=== PATIENT | male | born 1945 | race Caucasian/White ===

== ENCOUNTER 2016-05-13 11:25 | Inpatient (IN) | payer MEDICARE, MEDICAID ==
[~2016-05-13] VITALS: Ht 165.1 cm; Wt 62.6 kg
[2016-05-13 11:57] LABS: ANION GAP 12 (5-14); CARBON DIOXIDE 29 mmol/L (21-32); CHLORIDE 107 mmol/L (98-107); CREATININE 1.2 mg/dL (0.6-1.3); GLUCOSE 109 mg/dL (74-106); POTASSIUM 4.4 mmol/L (3.5-5.1); SODIUM SERUM 143 mmol/L (136-145); UREA NITROGEN, BLOOD 28 mg/dL (7-18)
[2016-05-13 12:02] LABS: ALANINE AMINOTRANSFERASE 7 U/L (12-78); ALBUMIN 3.8 g/dL (3.4-5.0); ASPARTATE AMINOTRANSFERASE 14 U/L (15-37); BILIRUBIN,DIRECT 0.1 mg/dL (0.0-0.2); BILIRUBIN,TOTAL 0.4 mg/dL (0.2-1.0); INDIRECT BILIRUBIN 0.3 mg/dL (0.0-1.1); TOTAL PROTEIN, SERUM 7.4 g/dL (6.4-8.2)
[2016-05-13 12:03] LABS: ACETAMINOPHEN 0 ug/ml (10-30); BASOPHILS # (AUTO) 0.1 /CMM (0.0-0.2); BASOPHILS % (AUTO) 0.7 % (0.0-2.0); DIFF TOTAL % 100 %; EOSINOPHILS # (AUTO) 0.1 /CMM (0.0-0.7); EOSINOPHILS % (AUTO) 1.3 % (0.0-6.0); HEMATOCRIT 34 % (39-51); LYMPHOCYTES # (AUTO) 1.1 /CMM (0.8-4.8); MEAN CORPUSCULAR HEMOGLOBIN 28 PG (26.0-33.0); MEAN CORPUSCULAR HGB CONC 32 g/dl (31.0-36.0); MEAN CORPUSCULAR VOLUME 87 fL (80-96); MONOCYTES # (AUTO) 0.6 /CMM (0.1-1.30); MONOCYTES % (AUTO) 7.5 % (2.0-12.0); NEUTROPHILS # (AUTO) 6.4 /CMM (1.8-8.9); NEUTROPHILS % (AUTO) 77.5 % (43.0-81.0); PLATELET COUNT (AUTO) 185 /CMM (150-450); RED BLOOD CELL COUNT(AUTO) 3.92 MIL/uL (4.5-6.0); SALICYLATE 1.1 mg/dL (2.8-20.0); WHITE BLOOD COUNT (AUTO) 8.3 K/uL (4.3-11.0)
[2016-05-13 12:20] LABS: ADD UA MICROSCOPIC NO; KETONES,URINE Negative (NEGATIVE); LEUKOCYTE ESTERASE ,URINE Negative (NEGATIVE); PH,URINE 6.5 (5.0-8.0)
[2016-05-13 12:36] LABS: CANNABINOID, URINE NEGATIVE (NEGATIVE); PHENCYCLIDINE SCREEN,URINE NEGATIVE (NEGATIVE)
[2016-05-13] MEDS ORDERED: CYAN10009 PO (12:41)
[2016-05-13] MEDS ORDERED: DOCU-25 PO (12:41)
[2016-05-13] MEDS ORDERED: CARB-93 PO (12:41)
[2016-05-13] MEDS ORDERED: ASPI81TA2 PO (12:41)
[2016-05-13] MEDS ORDERED: ACET-868 PO (12:41)
[2016-05-13] MEDS ORDERED: FOLI1TAB16 PO (12:41)
[2016-05-13] MEDS ORDERED: DIVA125C PO ×2 (12:41)
[2016-05-13] MEDS ORDERED: ATOR40TA PO (12:41)
[2016-05-13] MEDS ORDERED: LISI-607 PO (12:41)
[2016-05-13] MEDS ORDERED: OLAN7.5T3 PO (12:41)
[2016-05-13] MEDS ORDERED: FAMO-131 PO (12:41)
[2016-05-13 13:40] VITALS: BP 149/81
[2016-05-13] MEDS ORDERED: MAGNESIUM HYDROXIDE 30 ML UDC PO PRN (14:00)
[2016-05-13] MEDS ORDERED: ACETAMINOPHEN 325 MG TABLET PO PRN ×2 (14:00→14:30)
[2016-05-13] MEDS ORDERED: MAG HYDROX/AL HYDROX/SIMETH 30 ML UDC PO PRN (14:00)
[2016-05-13] MEDS: FAMOTIDINE (20 MG) 20 MG TABLET PO SCH (16:15)
[2016-05-13] MEDS: CARBIDOPA/LEVODOPA 25/100 MG 1 UDTAB PO SCH (16:15)
[2016-05-13 16:21] VITALS: BP 115/56
[2016-05-13 20:02] VITALS: BP 159/88
[2016-05-13] MEDS: DOCUSATE SODIUM 100 MG CAPSULE PO SCH (21:24)
[2016-05-13] MEDS: ATORVASTATIN 40 MG TABLET PO SCH (21:24)
[2016-05-13] MEDS: TEMAZEPAM 7.5 MG CAPSULE PO PRN (21:25)
[2016-05-13] MEDS: DIVALPROEX SODIUM 250 MG TABLET.DR PO SCH (21:25)
[2016-05-13] MEDS: OLANZAPINE 5 MG/TAB.RAPDIS PO SCH (21:27)
[2016-05-14 07:53] LABS: ALBUMIN 3.1 g/dL (3.4-5.0); BILIRUBIN,TOTAL 0.5 mg/dL (0.2-1.0); CALCIUM, SERUM 8.9 mg/dL (8.5-10.1); CREATININE 1.2 mg/dL (0.6-1.3); POTASSIUM 4.4 mmol/L (3.5-5.1); TOTAL PROTEIN, SERUM 6.2 g/dL (6.4-8.2)
[2016-05-14] MEDS: ASPIRIN 81 MG TAB.CHEW PO SCH (09:00)
[2016-05-14] MEDS: CARBIDOPA/LEVODOPA 25/100 MG 1 UDTAB PO SCH ×3 (09:00→17:59)
[2016-05-14] MEDS: DOCUSATE SODIUM 100 MG CAPSULE PO SCH ×2 (09:00→21:26)
[2016-05-14] MEDS: FOLIC ACID 1 MG TABLET PO SCH (09:01)
[2016-05-14] MEDS: LISINOPRIL (5MG) 5 MG TABLET PO SCH (09:01)
[2016-05-14] MEDS: FAMOTIDINE (20 MG) 20 MG TABLET PO SCH ×2 (09:01→18:01)
[2016-05-14] MEDS: CYANOCOBALAMIN 500 MCG TABLET PO SCH (09:02)
[2016-05-14] MEDS: OLANZAPINE 5 MG/TAB.RAPDIS PO SCH ×4 (09:11→21:41)
[2016-05-14] MEDS: DIVALPROEX SODIUM 250 MG TABLET.DR PO SCH ×4 (09:12→21:40)
[2016-05-14] MEDS ORDERED: Z GUARD REMEDY 2 OZ OINT TP PRN (15:00)
[2016-05-14] MEDS: Z GUARD REMEDY 2 OZ OINT TP SCH (15:22)
[2016-05-14 16:00] VITALS: BP 113/57
[2016-05-14] MEDS: GABAPENTIN 100 MG CAPSULE PO SCH (17:00)
[2016-05-14] MEDS: LORAZEPAM 0.5 MG TABLET PO PRN (19:29)
[2016-05-14] MEDS: TEMAZEPAM 7.5 MG CAPSULE PO PRN (21:27)
[2016-05-14] MEDS: ATORVASTATIN 40 MG TABLET PO SCH (21:27)
[2016-05-15 08:00] VITALS: BP 136/86
[2016-05-15] MEDS: FAMOTIDINE (20 MG) 20 MG TABLET PO SCH ×2 (08:45→16:38)
[2016-05-15] MEDS: ASPIRIN 81 MG TAB.CHEW PO SCH ×2 (08:45→08:50)
[2016-05-15] MEDS: LISINOPRIL (5MG) 5 MG TABLET PO SCH (08:45)
[2016-05-15] MEDS: CYANOCOBALAMIN 500 MCG TABLET PO SCH (08:45)
[2016-05-15] MEDS: DOCUSATE SODIUM 100 MG CAPSULE PO SCH ×2 (08:45→22:56)
[2016-05-15] MEDS: FOLIC ACID 1 MG TABLET PO SCH (08:45)
[2016-05-15] MEDS: CARBIDOPA/LEVODOPA 25/100 MG 1 UDTAB PO SCH ×3 (08:45→16:38)
[2016-05-15] MEDS: GABAPENTIN 100 MG CAPSULE PO SCH ×4 (08:45→16:38)
[2016-05-15] MEDS: DIVALPROEX SODIUM 250 MG TABLET.DR PO SCH ×4 (08:48→22:58)
[2016-05-15] MEDS: OLANZAPINE 5 MG/TAB.RAPDIS PO SCH ×4 (09:06→22:58)
[2016-05-15] MEDS: Z GUARD REMEDY 2 OZ OINT TP SCH (09:07)
[2016-05-15 16:00] VITALS: BP 126/67
[2016-05-15 20:00] VITALS: BP 103/52
[2016-05-15] MEDS: ATORVASTATIN 40 MG TABLET PO SCH (22:56)
[2016-05-15] MEDS: TEMAZEPAM 7.5 MG CAPSULE PO PRN (22:59)
[2016-05-16 08:00] VITALS: BP 114/70
[2016-05-16] MEDS: FAMOTIDINE (20 MG) 20 MG TABLET PO SCH ×2 (08:45→17:24)
[2016-05-16] MEDS: GABAPENTIN 100 MG CAPSULE PO SCH ×3 (08:46→17:24)
[2016-05-16] MEDS: ASPIRIN 81 MG TAB.CHEW PO SCH (08:46)
[2016-05-16] MEDS: CYANOCOBALAMIN 500 MCG TABLET PO SCH (08:46)
[2016-05-16] MEDS: DOCUSATE SODIUM 100 MG CAPSULE PO SCH ×2 (08:46→21:24)
[2016-05-16] MEDS: FOLIC ACID 1 MG TABLET PO SCH (08:46)
[2016-05-16] MEDS: LISINOPRIL (5MG) 5 MG TABLET PO SCH (08:46)
[2016-05-16] MEDS: CARBIDOPA/LEVODOPA 25/100 MG 1 UDTAB PO SCH ×3 (08:46→17:24)
[2016-05-16] MEDS: Z GUARD REMEDY 2 OZ OINT TP SCH (08:47)
[2016-05-16] MEDS: OLANZAPINE 5 MG/TAB.RAPDIS PO SCH ×4 (08:49→21:25)
[2016-05-16] MEDS: DIVALPROEX SODIUM 250 MG TABLET.DR PO SCH ×4 (08:49→21:24)
[2016-05-16 16:00] VITALS: BP 113/56
[2016-05-16 20:00] VITALS: BP 108/50
[2016-05-16] MEDS: TEMAZEPAM 7.5 MG CAPSULE PO PRN (22:10)
[2016-05-16] MEDS: ATORVASTATIN 40 MG TABLET PO SCH (22:10)
[2016-05-17] VITALS (7 sets, daily range): BP systolic 68–131; BP diastolic 39–81
[2016-05-17] MEDS: GABAPENTIN 100 MG CAPSULE PO SCH ×4 (08:21→17:00)
[2016-05-17] MEDS: DOCUSATE SODIUM 100 MG CAPSULE PO SCH ×2 (08:21→21:15)
[2016-05-17] MEDS: FOLIC ACID 1 MG TABLET PO SCH (08:21)
[2016-05-17] MEDS: FAMOTIDINE (20 MG) 20 MG TABLET PO SCH ×2 (08:21→17:00)
[2016-05-17] MEDS: CYANOCOBALAMIN 500 MCG TABLET PO SCH (08:22)
[2016-05-17] MEDS: CARBIDOPA/LEVODOPA 25/100 MG 1 UDTAB PO SCH ×5 (08:22→17:54)
[2016-05-17] MEDS: LISINOPRIL (5MG) 5 MG TABLET PO SCH (08:22)
[2016-05-17] MEDS: ASPIRIN 81 MG TAB.CHEW PO SCH (08:22)
[2016-05-17] MEDS: DIVALPROEX SODIUM 250 MG TABLET.DR PO SCH ×5 (08:27→21:15)
[2016-05-17] MEDS: OLANZAPINE 5 MG/TAB.RAPDIS PO SCH ×5 (08:32→21:15)
[2016-05-17] MEDS: LORAZEPAM 0.5 MG TABLET PO PRN (11:22)
[2016-05-17] MEDS: Z GUARD REMEDY 2 OZ OINT TP SCH (13:41)
[2016-05-17] MEDS: TEMAZEPAM 7.5 MG CAPSULE PO PRN (22:16)
[2016-05-17] MEDS: ATORVASTATIN 40 MG TABLET PO SCH (22:16)
[2016-05-18 08:40] VITALS: BP 125/80
[2016-05-18] MEDS: FAMOTIDINE (20 MG) 20 MG TABLET PO SCH ×2 (08:57→17:10)
[2016-05-18] MEDS: ASPIRIN 81 MG TAB.CHEW PO SCH (08:57)
[2016-05-18] MEDS: CARBIDOPA/LEVODOPA 25/100 MG 1 UDTAB PO SCH ×3 (08:57→17:10)
[2016-05-18] MEDS: FOLIC ACID 1 MG TABLET PO SCH (08:57)
[2016-05-18] MEDS: Z GUARD REMEDY 2 OZ OINT TP SCH (08:58)
[2016-05-18] MEDS: DOCUSATE SODIUM 100 MG CAPSULE PO SCH ×2 (08:58→21:17)
[2016-05-18] MEDS: LISINOPRIL (5MG) 5 MG TABLET PO SCH (08:58)
[2016-05-18] MEDS: GABAPENTIN 100 MG CAPSULE PO SCH ×3 (08:58→17:10)
[2016-05-18] MEDS: CYANOCOBALAMIN 500 MCG TABLET PO SCH (08:58)
[2016-05-18] MEDS: OLANZAPINE 5 MG/TAB.RAPDIS PO SCH ×4 (09:00→21:17)
[2016-05-18] MEDS: DIVALPROEX SODIUM 250 MG TABLET.DR PO SCH ×4 (09:00→21:17)
[2016-05-18 09:10] LABS: CALCIUM, SERUM 8.7 mg/dL (8.5-10.1); CREATININE 1.4 mg/dL (0.6-1.3); POTASSIUM 4.1 mmol/L (3.5-5.1)
[2016-05-18 16:42] VITALS: BP 124/64
[2016-05-18 19:33] VITALS: BP 135/70
[2016-05-18] MEDS: ATORVASTATIN 40 MG TABLET PO SCH (21:17)
[2016-05-18] MEDS: TEMAZEPAM 7.5 MG CAPSULE PO PRN (21:18)
[2016-05-19 08:00] VITALS: BP 124/64
[2016-05-19] MEDS: FOLIC ACID 1 MG TABLET PO SCH (08:29)
[2016-05-19] MEDS: CYANOCOBALAMIN 500 MCG TABLET PO SCH (08:29)
[2016-05-19] MEDS: DOCUSATE SODIUM 100 MG CAPSULE PO SCH (08:29)
[2016-05-19 08:30] VITALS: BP 126/64
[2016-05-19] MEDS: FAMOTIDINE (20 MG) 20 MG TABLET PO SCH (08:30)
[2016-05-19] MEDS: GABAPENTIN 100 MG CAPSULE PO SCH ×2 (08:30→12:38)
[2016-05-19] MEDS: ASPIRIN 81 MG TAB.CHEW PO SCH (08:30)
[2016-05-19] MEDS: CARBIDOPA/LEVODOPA 25/100 MG 1 UDTAB PO SCH ×2 (08:30→12:38)
[2016-05-19] MEDS: LISINOPRIL (5MG) 5 MG TABLET PO SCH (08:30)
[2016-05-19] MEDS: OLANZAPINE 5 MG/TAB.RAPDIS PO SCH ×2 (09:00→12:38)
[2016-05-19] MEDS: DIVALPROEX SODIUM 250 MG TABLET.DR PO SCH ×2 (09:00→12:38)
[2016-05-19] MEDS: Z GUARD REMEDY 2 OZ OINT TP SCH (10:14)
== END 2016-05-19 13:06 | DRG 885 ==
LOC: ER 11:28 → GPS 13:03
PROVIDERS: ADMIT Psychiatry & Neurology Psychiatry; ATTEND Family Medicine
DX: F31.9 Bipolar disorder, unspecified (principal); F03.91 Unspecified dementia, unspecified severity, with behavioral disturbance; E44.1 Mild protein-calorie malnutrition; E78.5 Hyperlipidemia, unspecified; G20 Parkinson's disease; I10 Essential (primary) hypertension; Z59.0 Homelessness
CPT/HCPCS: 36415; 80048-TC; 80053-TC; 80061-TC; 80076-TC; 80164-TC; 80305; 81000-TC; 82962-TC; 85025-TC; 97001-TC; 97116-TC; 97530-TC; A4606; G0480; G6039-TC; Z7610

== ENCOUNTER 2016-05-22 16:27 | Emergency (ER) | payer MEDICARE, MEDICAID ==
[~2016-05-22] VITALS: Ht 172.7 cm; Wt 65.8 kg
[~2016-05-22 16:27] MED LIST: ACET-868 PO; ASPI81TA2 PO; ATOR40TA PO; CARB-93 PO; CYAN10009 PO; DIVA125C PO; DOCU-25 PO; FAMO-131 PO; FOLI1TAB16 PO; LISI-607 PO; OLAN7.5T3 PO
[2016-05-22 17:43] LABS: BASOPHILS # (AUTO) 0.1 /CMM (0.0-0.2); BASOPHILS % (AUTO) 0.8 % (0.0-2.0); DIFF TOTAL % 100 %; EOSINOPHILS # (AUTO) 0.3 /CMM (0.0-0.7); EOSINOPHILS % (AUTO) 2.5 % (0.0-6.0); HEMATOCRIT 33 % (39-51); HEMOGLOBIN 11.1 g/dL (13.5-17.5); LYMPHOCYTES # (AUTO) 1.7 /CMM (0.8-4.8); LYMPHOCYTES % (AUTO) 15.8 % (20.0-44.0); MEAN CORPUSCULAR HEMOGLOBIN 29 PG (26.0-33.0); MEAN CORPUSCULAR HGB CONC 34 g/dl (31.0-36.0); MEAN CORPUSCULAR VOLUME 86 fL (80-96); MONOCYTES # (AUTO) 0.8 /CMM (0.1-1.30); MONOCYTES % (AUTO) 7.2 % (2.0-12.0); NEUTROPHILS # (AUTO) 7.7 /CMM (1.8-8.9); NEUTROPHILS % (AUTO) 73.7 % (43.0-81.0); PLATELET COUNT (AUTO) 226 /CMM (150-450); RED BLOOD CELL COUNT(AUTO) 3.85 MIL/uL (4.5-6.0); WHITE BLOOD COUNT (AUTO) 10.6 K/uL (4.3-11.0)
[2016-05-22 17:48] LABS: CANNABINOID, URINE NEGATIVE (NEGATIVE); PHENCYCLIDINE SCREEN,URINE NEGATIVE (NEGATIVE)
[2016-05-22 17:50] LABS: ANION GAP 12 (5-14); CARBON DIOXIDE 28 mmol/L (21-32); CHLORIDE 107 mmol/L (98-107); CREATININE 1.3 mg/dL (0.6-1.3); GLUCOSE 83 mg/dL (74-106); POTASSIUM 4.5 mmol/L (3.5-5.1); SODIUM SERUM 143 mmol/L (136-145); UREA NITROGEN, BLOOD 24 mg/dL (7-18)
[2016-05-22] MEDS ORDERED: TEMA7.5C12 PO (17:57)
[2016-05-22] MEDS ORDERED: LORA0.5T PO (17:57)
[2016-05-22] MEDS ORDERED: GABA-534 PO (17:58)
[2016-05-22] MEDS ORDERED: LORAZEPAM 1 MG TABLET ONE (20:15)
[2016-05-22] MEDS ORDERED: LORAZEPAM 1 MG TABLET PO ONE (20:30)
[2016-05-22 21:53] VITALS: BP 114/55
== END 2016-05-22 21:54 | disposition home or self-care (01) ==
LOC: ER 16:35
DX: R45.1 Restlessness and agitation (principal); I10 Essential (primary) hypertension; G20 Parkinson's disease; E78.5 Hyperlipidemia, unspecified; K21.9 Gastro-esophageal reflux disease without esophagitis; F31.9 Bipolar disorder, unspecified; Z79.82 Long term (current) use of aspirin
CPT/HCPCS: 36415; 80048; 80305; 85025; 99284; A4606; G0480; Z7610

== ENCOUNTER 2016-09-02 09:30 | Emergency (ER) | payer MEDICARE, MEDICAID ==
[~2016-09-02] VITALS: Ht 172.7 cm; Wt 68.0 kg
[~2016-09-02 09:30] MED LIST changes: -ACET-868 PO; +GABA-534 PO; +LORA0.5T PO; +TEMA7.5C12 PO
--- NOTE | 2016-09-02 11:15 | NUR ---
REPORT RECEIVED FROM BETHANY CORTES FOR JOSE LUIS. ASSUMED CARE OF PT AT THIS TIME. NAD NOTED. PT RESTING QUIETLY IN BED WITH AT BEDSIDE.
--- NOTE | 2016-09-02 11:50 | NUR ---
PT TRANSPORTED TO CT IN STABLE CONDITION
--- NOTE | 2016-09-02 11:55 | NUR ---
PROVIDED WITH URINAL
--- NOTE | 2016-09-02 12:56 | NUR ---
Patient discharged to home in stable condition. Written and verbal after care instructions given. Patient verbalizes understanding of instruction. PROVIDED WITH WHEELCHAIR ASSISTANCE TO CAR.
[2016-09-02 12:57] VITALS: BP 144/82
== END 2016-09-02 12:57 ==
LOC: ER 09:33
DX: S72.092A Other fracture of head and neck of left femur, initial encounter for closed fracture (principal); E78.5 Hyperlipidemia, unspecified; K21.9 Gastro-esophageal reflux disease without esophagitis; X58.XXXA Exposure to other specified factors, initial encounter; Y93.89 Activity, other specified; Y92.89 Other specified places as the place of occurrence of the external cause; Y99.8 Other external cause status
CPT/HCPCS: 72170-TC; 73700-TC; A4606; Z7610

== ENCOUNTER 2016-09-30 17:49 | Inpatient (IN) | payer MEDICARE, MEDICAID ==
[~2016-09-30] VITALS: Ht 175.3 cm; Wt 66.2 kg
--- NOTE | 2016-09-30 18:00 | NUR ---
PATIENT BIB RA D/T ALTERED MENTAL STATUS, MORE THAN USUAL. PATIENT IS A/OX 1. BREATHING EVEN AND UNLABORED ON ROOM AIR. NO SOB. NO DISTRESS. PATIENT'S VITALS REMAINS STABLE. SAFETY AND COMFORT MEASURES IN PLACE. AWAITING MD ORDERS.
[2016-09-30 18:22] LABS: BASOPHILS # (AUTO) 0.1 /CMM (0.0-0.2); BASOPHILS % (AUTO) 0.5 % (0.0-2.0); EOSINOPHILS % (AUTO) 0.3 % (0.0-6.0); HEMATOCRIT 39 % (39-51); HEMOGLOBIN 12.4 g/dL (13.5-17.5); LYMPHOCYTES # (AUTO) 0.9 /CMM (0.8-4.8); LYMPHOCYTES % (AUTO) 7.1 % (20.0-44.0); MEAN CORPUSCULAR HEMOGLOBIN 27 PG (26.0-33.0); MEAN CORPUSCULAR HGB CONC 32 g/dl (31.0-36.0); MEAN CORPUSCULAR VOLUME 84 fL (80-96); MONOCYTES # (AUTO) 0.8 /CMM (0.1-1.30); MONOCYTES % (AUTO) 6.5 % (2.0-12.0); NEUTROPHILS # (AUTO) 10.3 /CMM (1.8-8.9); NEUTROPHILS % (AUTO) 85.6 % (43.0-81.0); PLATELET COUNT (AUTO) 212 /CMM (150-450); RDW COEFFICIENT OF VARIATION 15.6 (11.5-15.0); RED BLOOD CELL COUNT(AUTO) 4.63 MIL/uL (4.5-6.0); WHITE BLOOD COUNT (AUTO) 12.1 K/uL (4.3-11.0)
[2016-09-30 18:32] LABS: CALCIUM, SERUM 9.5 mg/dL (8.5-10.1); CARBON DIOXIDE 23 mmol/L (21-32); CHLORIDE 107 mmol/L (98-107); CREATININE 2.7 mg/dL (0.6-1.3); GLUCOSE 110 mg/dL (74-106); POTASSIUM 4.9 mmol/L (3.5-5.1); SODIUM SERUM 141 mmol/L (136-145); UREA NITROGEN, BLOOD 54 mg/dL (7-18)
[2016-09-30 18:35] LABS: INR 1.12 (0.87-1.13); PROTHROMBIN TIME 11.7 SECS (9.5-12.7)
[2016-09-30 18:38] LABS: ALANINE AMINOTRANSFERASE 39 U/L (12-78); ALBUMIN 2.9 g/dL (3.4-5.0); ALKALINE PHOSPHATASE 53 U/L (46-116); ASPARTATE AMINOTRANSFERASE 79 U/L (15-37); BILIRUBIN,DIRECT 0.1 mg/dL (0.0-0.2); BILIRUBIN,TOTAL 0.5 mg/dL (0.2-1.0); TOTAL PROTEIN, SERUM 6.9 g/dL (6.4-8.2)
[2016-09-30 18:40] LABS: TROPONIN I 0.162 ng/mL (0.00-0.056)
[2016-09-30] MEDS ORDERED: DOCU-170 PO (18:53)
[2016-09-30] MEDS ORDERED: ACET-868 PO (18:53)
[2016-09-30] MEDS ORDERED: CHOL200026 PO (18:53)
[2016-09-30] MEDS ORDERED: MEMA5TAB PO (18:53)
[2016-09-30] MEDS ORDERED: QUET100T PO (18:53)
[2016-09-30] MEDS ORDERED: FOLI1TAB16 PO (18:53)
[2016-09-30] MEDS ORDERED: BISA-79 PO (18:53)
[2016-09-30] MEDS ORDERED: MAG30ORA PO (18:53)
[2016-09-30] MEDS ORDERED: DIVA125C PO (18:53)
[2016-09-30] MEDS ORDERED: TRAZ-144 PO (18:53)
[2016-09-30] MEDS ORDERED: QUET50TA PO (18:53)
[2016-09-30] MEDS ORDERED: MULT-659 PO (18:53)
[2016-09-30] MEDS ORDERED: FAMO20TA8 PO (18:53)
[2016-09-30] MEDS ORDERED: IV NS 0.9% 1,000 ML BAG IV ONE (19:00)
[2016-09-30] MEDS ORDERED: ASPIRIN 81 MG TAB.CHEW PO ONE (19:00)
[2016-09-30] MEDS ORDERED: ASPIRIN 81 MG TAB.CHEW ONE (19:07)
--- NOTE | 2016-09-30 19:14 | NUR ---
PATIENT TAKEN TO CT VIA STRETCHER.
--- NOTE | 2016-09-30 19:25 | NUR ---
PATIENT RETURNED FROM CT. REPORT GIVEN TO SOPHIA ALEXANDRE FOR JOSE LUIS.
[2016-09-30] MEDS ORDERED: IV NS 0.9% 1,000 ML IV PRN (19:32)
--- NOTE | 2016-09-30 19:53 | NUR ---
URINE COLLECTED BY STRAIGHT CATH PER MD ORDER, KEATON SENT TO LAB WILL CONTINUE TO MONITOR.
[2016-09-30 19:55] LABS: APPEARANCE,URINE Clear (CLEAR); BILIRUBIN,URINE SMALL (NEGATIVE); BLOOD, URINE Negative Ery/uL (NEGATIVE); COLOR,URINE Yellow (YELLOW); KETONES,URINE Negative (NEGATIVE); LEUKOCYTE ESTERASE ,URINE Negative (NEGATIVE); NITRITE, URINE Negative (NEGATIVE); PH,URINE 5.5 (5.0-8.0); PROTEIN,URINE Trace mg/dl (NEGATIVE); UGLUCOSE Negative (NEGATIVE); UROBILINOGEN,URINE 0.2 EU/dL (0.2)
[2016-09-30] MEDS: MEMANTINE HCL 5 MG TABLET PO SCH (20:00)
[2016-09-30] MEDS ORDERED: LORAZEPAM 0.5 MG TABLET PO PRN (20:00)
[2016-09-30] MEDS ORDERED: MAG HYDROX/AL HYDROX/SIMETH 30 ML UDC PO PRN (20:00)
[2016-09-30] MEDS ORDERED: BISACODYL (5 MG) 5 MG TABLET.DR PO PRN (20:00)
[2016-09-30] MEDS ORDERED: MAGNESIUM HYDROXIDE 30 ML UDC PO PRN (20:00)
[2016-09-30] MEDS ORDERED: ONDANSETRON HCL/PF 4 MG/2 ML VIAL IVP PRN (20:00)
[2016-09-30] MEDS ORDERED: ACETAMINOPHEN 325 MG TABLET PO PRN (20:00)
[2016-09-30] MEDS ORDERED: Z GUARD REMEDY 2 OZ OINT TP PRN (20:00)
[2016-09-30] MEDS ORDERED: TRAZODONE 50 MG TABLET PO PRN (20:00)
[2016-09-30] MEDS ORDERED: HYDROCODONE/APAP 5/325MG 1 EACH TABLET PO PRN (20:00)
--- NOTE | 2016-09-30 20:05 | NUR ---
REPORT GIVEN TO REKHA/RN ON BEHALF OF PRIMARY NURSE BETTIE.
[2016-09-30 20:08] LABS: BACTERIA,URINE Few /HPF (None Seen); RBC,URINE 0-2 /HPF (0-2); SQUAMOUS EPITHELIAL CELL,UR Rare /HPF (None Seen); WBC,URINE 0-2 /HPF (0-3)
[2016-09-30 20:20] VITALS: BP 138/73
--- NOTE | 2016-09-30 20:20 | NUR ---
RESIDENT MEDICAL OFFICER OPENING NOTES: RECEIVED PT. PT IS A/O X 1 AND IS CONFUSED. PT WAS BROUGHT UP AND IS FINISHING UP WITH 2L OF NS. PT HAS IV ON L FOREARM #20G. PT ALSO HAS ANOTHER IV ON R WRIST #20 G AND IS PATENT AND INTACT. PT HAS DIAPER ON. PT ON 2LPM VIA NC AND IS TOLERATING WELL. CALL LIGHT WITHIN PT'S REACH. AT BEDSIDE. BED KEPT IN LOCKED, LOWEST POSITION, AND SIDE RAILS X 2 UP. WILL CONTINUE TO MONITOR PT.
[2016-09-30] MEDS: DIVALPROEX SODIUM 125 MG CAP.SPRINK PO SCH (20:47)
[2016-09-30] MEDS ORDERED: ENOXAPARIN SODIUM 30 MG/0.3 ML DISP.SYRIN SQ SCH (21:00)
[2016-09-30] MEDS: ATORVASTATIN 40 MG TABLET PO SCH (22:00)
--- NOTE | 2016-09-30 22:00 | NUR ---
NURSE OFFICE NOTES: SPOKE WITH DR. STAFFORD AND PER DR. STAFFORD, HOLD PO MEDS UNTIL SWALLOW EVAL DONE.
[2016-10-01] VITALS (35 sets, daily range): BP systolic 84–156; BP diastolic 43–99
--- NOTE | 2016-10-01 00:15 | NUR ---
REGENERATOR OPERATOR NOTES: DR. JOE ON THE FLOOR AND WAS INFORMED ABOUT PT'S CRITICAL TROPONIN LAB VALUE. EKG STAT WAS ORDERED AND HEPARIN DRIP WELL.
[2016-10-01] MEDS ORDERED: HEPARIN INFUSION/D5W 500 ML IV ONE (00:38)
--- NOTE | 2016-10-01 01:00 | NUR ---
TUBE WRAPPER NOTES: INFORMED DR. JOE ABOUT EKG RESULTS AND SHE SAID TO TRANSFER PT TO ICU.
--- NOTE | 2016-10-01 01:35 | NUR ---
ICU/RN- RECEIVED PT. FROM [facility] PER ACLS PROTOCOL NURSING FOCUS:ALTERED CARDIAC TISSUE PERFUSION R/T DIAGNOSIS OF STEMI. ROUTINE ICU ADMISSION CARE INITIATED. PT. IS AWAKE, ALERT, ORIENTED TO SELF.WILL ARRANGE TO TRANSFER TO [facility] PER CASH POSTER DR. PADILLA PER [place] SOPHIA RAJAN.
[2016-10-01] MEDS ORDERED: HEPARIN SODIUM, PORCINE 5000 UNITS/1 ML VIAL ONE (01:53)
[2016-10-01] MEDS ORDERED: HEPARIN SODIUM, PORCINE 5000 UNITS/1 ML VIAL IV ONE (02:00)
--- NOTE | 2016-10-01 02:00 | NUR ---
RN/ICU- SPOKE TO DUC , HOUSEKEEPING AID AT [facility] REGARDING TRANSFER, FACE SHEET AND COPY OF 12 LEAD EKG FAXED TO SAME.
--- NOTE | 2016-10-01 02:05 | NUR ---
RN/ICU- HEPARIN DRIP STARTED PER [facility] PROTOCOL PER MD ORDER.
[2016-10-01] MEDS: HEPARIN INFUSION/D5W 500 ML IV PRN ×2 (02:06→22:46)
--- NOTE | 2016-10-01 02:15 | NUR ---
RN/ICU- SPOKE TO DUC FROM [facility] BY PHONE, ACCORDING TO SABRA, PT. TRANSFER WAS DECLINED BY DR. MODI, FUR OPERATOR FROM [facility], "PT. IS NOT A STEMI" PER SABRA FUR OPERATOR. WILL NOTIFY
--- NOTE | 2016-10-01 02:20 | NUR ---
RN/ICU-DR. HEATH Fields MADE AWARE OF [facility] DECISION ,W/ NO FURTHER ORDERS.
--- NOTE | 2016-10-01 03:00 | NUR ---
RN/ICU- PT. GEOVANNI NOTIFIED BY PHONE REGARDING [facility] DECLINATION OF PT. TRANSFER. REQUESTING TO TALK TO DR. HEATH Fields
--- NOTE | 2016-10-01 03:15 | NUR ---
RN/ICU- SPOKE TO DR. HEATH Fields AND STATED TO LET FAMILY PT. KNOW THAT MACHINE CAGE MAKER WAS CONSULTED AND WILL SEE PT. IN AM AND WILL HAVE FURTHER INFORMATION.
--- NOTE | 2016-10-01 03:20 | NUR ---
RN/ICU- WAS NOTIFIED OF DR. JOE'S MESSAGE, WILL WAIT FOR SLOT FLOOR SUPERVISOR TO SEE PT. TODAY AND REQUESTING TO BE CALLED BY SLOT FLOOR SUPERVISOR REGARDING PLAN AND PT. DIAGNOSIS. WILL NOTIFY DAYSHIFT RN.
--- NOTE | 2016-10-01 04:56 | NUR ---
RN/ICU- PT. IS FOR SWALLOW EVAL. TODAY PER ENDORSED BY SOPHIA RAJAN. WILL KEEP PT. NPO FOR NOW.
--- NOTE | 2016-10-01 04:57 | NUR ---
RN/ICU- PT. REMAINS AROUSABLE, ASKING FOR WATER, ORAL CARE DONE.
--- NOTE | 2016-10-01 06:15 | NUR ---
RN/ICU-RESULT OF TROPONIN, 15.512, DR. JOE NOTIFIED W/ ORDER TO DO AN EKG AND NOTIFY DR. PADILLA.
[2016-10-01 06:16] LABS: BASOPHILS % (AUTO) 0.3 % (0.0-2.0); EOSINOPHILS # (AUTO) 0.1 /CMM (0.0-0.7); EOSINOPHILS % (AUTO) 0.5 % (0.0-6.0); HEMATOCRIT 33 % (39-51); HEMOGLOBIN 10.6 g/dL (13.5-17.5); LYMPHOCYTES % (AUTO) 9.6 % (20.0-44.0); MEAN CORPUSCULAR HEMOGLOBIN 27 PG (26.0-33.0); MEAN CORPUSCULAR HGB CONC 33 g/dl (31.0-36.0); MEAN CORPUSCULAR VOLUME 84 fL (80-96); MONOCYTES # (AUTO) 0.8 /CMM (0.1-1.30); MONOCYTES % (AUTO) 8.2 % (2.0-12.0); NEUTROPHILS # (AUTO) 8.3 /CMM (1.8-8.9); NEUTROPHILS % (AUTO) 81.4 % (43.0-81.0); PLATELET COUNT (AUTO) 172 /CMM (150-450); RDW COEFFICIENT OF VARIATION 16.6 (11.5-15.0); RED BLOOD CELL COUNT(AUTO) 3.88 MIL/uL (4.5-6.0); WHITE BLOOD COUNT (AUTO) 10.2 K/uL (4.3-11.0)
--- NOTE | 2016-10-01 06:25 | NUR ---
RN/ICU-SPOKE TO DR. PADILLA AND MADE AWARE OF PT LAB RESULT AND SITUATION W/ [facility] W/ NO FURTHER ORDER.
[2016-10-01 06:26] LABS: CALCIUM, SERUM 9.1 mg/dL (8.5-10.1); CARBON DIOXIDE 26 mmol/L (21-32); CHLORIDE 110 mmol/L (98-107); CREATININE 2.2 mg/dL (0.6-1.3); GLUCOSE 114 mg/dL (74-106); MAGNESIUM 2.2 mg/dL (1.8-2.4); PHOSPHORUS 4.6 mg/dL (2.5-4.9); POTASSIUM 4.1 mmol/L (3.5-5.1); SODIUM SERUM 145 mmol/L (136-145); UREA NITROGEN, BLOOD 53 mg/dL (7-18)
[2016-10-01 06:30] LABS: IRON, SERUM 25 ug/dl (50-175); TOTAL IRON BINDING CAPACITY 194 ug/dl (250-450)
[2016-10-01 06:40] LABS: CHOLESTEROL 156 mg/dL (<200); HDL CHOLESTEROL 51 mg/dL (40-60); LDL 88 mg/dL (0-99); THYROID STIMULATING HORMONE 0.968 uIU/mL (0.358-3.74); TRIGLYCERIDES 63 mg/dL (30-150)
--- NOTE | 2016-10-01 06:40 | NUR ---
RN/ICU- ABLE TO DO EKG W/ GREAT DIFFICULTY, PT. VERY UNCOOPERATIVE, REFUSING EKG . WAS ABLE TO DO PROCEDURE, PT, SHAKING(H/O PARKINSON).
--- NOTE | 2016-10-01 07:00 | NUR ---
RN/ICU- AWAITING FOR CARDIOLOGY, PT. NO S/S OF DISTRESS OR PAIN. WILL CONTINUE TO MONITOR PER PROTOCOL.
[2016-10-01] MEDS ORDERED: PANTOPRAZOLE 40 MG TABLET.DR PO SCH (07:30)
--- NOTE | 2016-10-01 08:11 | NUR ---
AWAITING FOR STAT SWALLOW EVAL. PT IS ALERT ENOUGH TO BE ASKING FOR ICE WATER. PLACED STAT ORDER, PT IS AGITATED, CURSING.
[2016-10-01] MEDS ORDERED: DIVALPROEX SODIUM 125 MG CAP.SPRINK PO SCH (09:00)
[2016-10-01] MEDS ORDERED: ASPIRIN 81 MG TAB.CHEW PO SCH ×2 (09:00→10:00)
[2016-10-01] MEDS ORDERED: CARVEDILOL 6.25 MG TABLET PO SCH (10:00)
--- NOTE | 2016-10-01 10:06 | NUR ---
PT PASSED SWALLOW EVAL WITH [facility]OMMENDATIONS [facility] SOFT [facility], THIN LIQ OKAY.
[2016-10-01] MEDS: FAMOTIDINE (20 MG) 20 MG TABLET PO SCH (10:07)
[2016-10-01] MEDS: DIVALPROEX SODIUM 125 MG CAP.SPRINK PO SCH ×3 (10:07→18:26)
[2016-10-01] MEDS: FOLIC ACID 1 MG TABLET PO SCH (10:07)
[2016-10-01] MEDS: GABAPENTIN 300 MG CAPSULE PO SCH ×3 (10:08→16:18)
[2016-10-01] MEDS: MEMANTINE HCL 5 MG TABLET PO SCH ×2 (10:08→16:18)
[2016-10-01] MEDS: CARBIDOPA/LEVODOPA 25/100 MG 1 UDTAB PO SCH ×3 (10:08→16:18)
[2016-10-01] MEDS: DOCUSATE SODIUM 100 MG CAPSULE PO SCH (10:08)
[2016-10-01] MEDS: IV NS 0.9% 1,000 ML IV PRN (10:51)
--- NOTE | 2016-10-01 10:55 | NUR ---
PTT CAME BACK AT 106. REPORTED TO DR. PADILLA ON THE UNIT. HE AGREES WITH THE HEPARIN DOSING SCALE PROTOCOL. WHICH IS TO HOLD INFUSION FOR 1HR AND THEN DECREASE UNITS BY 200, PTT AT 1640.
--- NOTE | 2016-10-01 11:45 | NUR ---
DR. PADILLA BACK ON THE UNIT AFTER PAGING HIM. SHOWED HIM THE CRITICAL LAB TROP 60.077. ORDERS TO CONTINUE HEPARIN GTT, FOR NOW NO ANGIOGRAM BECAUSE HE IS BACK IN NSR. HE SPOKE WITH THE PT'S OVER THE PHONE AND THE PT'S [id number] WHO IS A GAS CUTTING MACHINE OPERATOR AT [facility]. AT THIS TIME THEY ARE NOT ABLE TO SECURE A BED FOR HIM AT [facility] EVEN THOUGH THE IS REQUESTING FOR TRANSFER.
--- NOTE | 2016-10-01 14:48 | NUR ---
DR. STAFFORD ON THE UNIT SHE SPEAKS WITH THE OVER THE PHONE. SHE EXPLAINS SITUATION WHY [facility] DID NOT ACCEPT THE PT INITIALLY. SHE EXPLAINS TO THE THAT A TRANSFER WOULD BE MORE RAPID IF THE [id number] WERE TO BE ABLE TO SECURE A BED FOR HIM. I SPOKE WITH THE ON THE PHONE WELL, SHE ALLUDED TO THE PT AND THE [id number] NOT TALKING, POSSIBLE ESTRANGEMENT.
[2016-10-01 17:40] LABS: INR 1.06 (0.87-1.13); PROTHROMBIN TIME 11.4 SECS (9.5-12.7)
--- NOTE | 2016-10-01 17:48 | NUR ---
CALLED LAB TO PUSH THROUGH RESULTS FOR PTT AND TROP
--- NOTE | 2016-10-01 17:58 | NUR ---
PTT IS 50 NO CHANGE PER HEPARIN ACS PROTOCOL. FOLLOW UP PTT IN AM.
[2016-10-01] MEDS: QUETIAPINE FUMARATE 25 MG TABLET PO SCH (18:26)
--- NOTE | 2016-10-01 18:34 | NUR ---
Critical lab recvd from lab troponin 126.76. Called for Dr. Carmen immediately. [phone] Answering service connects me with Dr. Carmen relayed to him the troponin of 126.76, I also told him the pt's systolic blood pressure is in 90's consistently at one point it was 88 while asleep. He is also sinus catarina at 58 but not sustaining but averaging in 60s. He orders to DC Carvedilol. No other orders.
--- NOTE | 2016-10-01 20:16 | NUR ---
WORKERS COMPENSATION LEGAL SECRETARY. INITIAL ASSESSMENT. RECEIVED THE PT REST ON THE BED. PT AWAKE, ALERT, FOLLOW COMMANDS. MAILROOM COURIER SHOWING NSR. IV RT HAND IVF NS 75ML/H,HEPARIN 800U/H. HOB ELEVATED, FC PATENT. TURN AND REPOSITION Q2H. WILL CONTINUE TO MONITOR VITALS.
[2016-10-01] MEDS: ATORVASTATIN 40 MG TABLET PO SCH (22:07)
[2016-10-02] VITALS (38 sets, daily range): BP systolic 94–149; BP diastolic 45–126
[2016-10-02] MEDS: IV NS 0.9% 1,000 ML IV PRN ×2 (00:02→12:17)
[2016-10-02 05:03] LABS: BASOPHILS % (AUTO) 0.2 % (0.0-2.0); EOSINOPHILS # (AUTO) 0.1 /CMM (0.0-0.7); EOSINOPHILS % (AUTO) 0.8 % (0.0-6.0); HEMATOCRIT 30 % (39-51); HEMOGLOBIN 9.8 g/dL (13.5-17.5); LYMPHOCYTES # (AUTO) 1.1 /CMM (0.8-4.8); MEAN CORPUSCULAR HEMOGLOBIN 28 PG (26.0-33.0); MEAN CORPUSCULAR HGB CONC 33 g/dl (31.0-36.0); MEAN CORPUSCULAR VOLUME 84 fL (80-96); MONOCYTES # (AUTO) 0.7 /CMM (0.1-1.30); MONOCYTES % (AUTO) 7.7 % (2.0-12.0); NEUTROPHILS # (AUTO) 7.2 /CMM (1.8-8.9); NEUTROPHILS % (AUTO) 79.3 % (43.0-81.0); PLATELET COUNT (AUTO) 174 /CMM (150-450); RDW COEFFICIENT OF VARIATION 16.6 (11.5-15.0); RED BLOOD CELL COUNT(AUTO) 3.53 MIL/uL (4.5-6.0)
[2016-10-02 05:17] LABS: CALCIUM, SERUM 8.8 mg/dL (8.5-10.1); CARBON DIOXIDE 24 mmol/L (21-32); CHLORIDE 112 mmol/L (98-107); CREATININE 1.4 mg/dL (0.6-1.3); GLUCOSE 98 mg/dL (74-106); PHOSPHORUS 3.1 mg/dL (2.5-4.9); POTASSIUM 3.8 mmol/L (3.5-5.1); SODIUM SERUM 145 mmol/L (136-145); UREA NITROGEN, BLOOD 42 mg/dL (7-18)
[2016-10-02] MEDS ORDERED: Z GUARD REMEDY 2 OZ OINT TP PRN (05:30)
[2016-10-02] MEDS: DIVALPROEX SODIUM 125 MG CAP.SPRINK PO SCH ×3 (08:21→18:28)
[2016-10-02] MEDS: ASPIRIN 325 MG TABLET PO SCH (08:21)
[2016-10-02] MEDS: MEMANTINE HCL 5 MG TABLET PO SCH ×2 (08:21→16:10)
[2016-10-02] MEDS: DOCUSATE SODIUM 100 MG CAPSULE PO SCH (08:21)
[2016-10-02] MEDS: FOLIC ACID 1 MG TABLET PO SCH (08:21)
[2016-10-02] MEDS: GABAPENTIN 300 MG CAPSULE PO SCH ×3 (08:21→16:10)
[2016-10-02] MEDS: CARBIDOPA/LEVODOPA 25/100 MG 1 UDTAB PO SCH ×3 (08:21→16:10)
[2016-10-02] MEDS: FAMOTIDINE (20 MG) 20 MG TABLET PO SCH (08:21)
[2016-10-02] MEDS ORDERED: ASPIRIN 325 MG TABLET PO SCH (09:00)
--- NOTE | 2016-10-02 10:10 | NUR ---
DR. PADILLA NOTIFIED OF CRITICAL TROPNIN 64.961 NO NEW ORDERS AT THIS TIME TROPONIN IS TRENDING DOWN.
--- NOTE | 2016-10-02 11:55 | NUR ---
DR. PADILLA ON THE UNIT REPORT NEWEST TROP AT 47.503. NO NEW ORDERS TROP IS TRENDING DOWN. Addendum: 10/02/16 at 1250 by PANCHO KELLY RN DR. PADILLA STATES IT IS OKAY TO STOP CHECKING TROPONIN.
--- NOTE | 2016-10-02 12:01 | NUR ---
PTT LEVEL 52, PER ACS PROTOCOL NO CHANGE AND PTT IN THE AM.
--- NOTE | 2016-10-02 13:08 | NUR ---
DR. PADILLA ON THE UNIT. LOOKS AT THE NEWEST EKG RESULTS (ST ELEVATION) AND SPEAKS DIRECTLY TO [employer] WHO PERFORMED THE ECHO. HE STATES THAT THE PT WOULD BENEFIT FROM CATH. THE PT'S IS AT BEDSIDE DR. PADILLA SPEAKS DIRECTLY TO THE PATIENT AND . Addendum: 10/02/16 at 1344 by PANCHO KELLY RN PT AND THE AGREE TO THE CATH. DR. PADILLA STATES HE WILL CALL DR. ACUÑA TO SEE IF WE CAN GET HIM ON LIST FOR TOMORROW (THURSDAY) IF UNABLE TO GET THURSDAY THEN PT WILL STAY OVER THE WEEKEND AND GET THE PROCEDURE DONE THURSDAY.
--- NOTE | 2016-10-02 15:25 | NUR ---
DR. PADILLA SPEAKS DIRECTLY WITH DR. ACUÑA FOR CATH PROCEDURE FOR THE PT. NO OPENINGS ON THURSDAY. CATH WILL BE SCHEDULED FOR THURSDAY. SWAPNA ROBINSS CALLS FROM [facility] AND STATES HE WILL BE PICKED UP THURSDAY MORNING 629. DR. PADILLA ORDERS -CHECK TROPONIN DAILY -CONTINUOUS HEPARIN GTT UNTIL PT GOES TO PROCEDURE ORDERS PLACED IN [facility]. DR. PADILLA STATES THAT HE WILL BE HERE THIS WEEKEND AND WILL SEE PT TOMORROW AM. HE ALSO SPEAKS DIRECTLY TO THE PT'S ABOUT PLAN OF CARE SHE IS UP TO DATE AND SATISFIED.
--- NOTE | 2016-10-02 15:59 | NUR ---
Plan for heart cath Thursday by .Spoke to Tobias admitting at [facility] [phone], faxed clinicals. Patient has been financially cleared for Heart cath on 10/06/16 need to be at [facility] by 8am per Tobias. Report to be called to outside laborer [phone], [facility] ambulance [employer] pickle solution maker @ 6:45am Addendum: 10/02/16 at 1607 by JENNIFER CAMP RN Amended: Links added.
[2016-10-02] MEDS: QUETIAPINE FUMARATE 25 MG TABLET PO SCH (18:28)
--- NOTE | 2016-10-02 20:49 | NUR ---
SENIOR ORACLE DATABASE DEVELOPER: RECEIVED PT FROM JOB/RN, PT IS AAO X2, ABLE TO FOLLOW COMMANDS, DENIED PAIN. ON HEPARIN DRIP FOR ACUTE CORONARY SYNDROME(STEMI) RUNNING AT 950 UNITS/HR, NEXT PTT WILL BE IN AM. CONSTRUCTION GRIP DR PADILLA IN THE CASE, PLAN FOR CARDIAC CATH ON THURSDAY WAS DISCUSSED WITH FAMILY MY MD. COMPLETE ASSESSMENT SEE ON FLOW SHEET. ALL NEEDS ATTENDED. PT TURNED AND REPOSITIONED FOR COMFORT. PERIPHERAL IV ACCESSES ARE INTACT. NS AT 75 CC/HR ONGOING FOR HYDRATION. SAFETY PRECAUTION PLACED. SKIN PROTECTION MEASURES APPLIED. V/S STABLE. AFEBRILE. ONGOING MONITORING.
[2016-10-02] MEDS: ATORVASTATIN 40 MG TABLET PO SCH (21:29)
[2016-10-02] MEDS: HEPARIN INFUSION/D5W 500 ML IV PRN (23:44)
[2016-10-03] VITALS (34 sets, daily range): BP systolic 106–165; BP diastolic 54–103
[2016-10-03] MEDS: IV NS 0.9% 1,000 ML IV PRN ×2 (01:09→14:40)
[2016-10-03 04:53] LABS: BASOPHILS % (AUTO) 0.3 % (0.0-2.0); EOSINOPHILS # (AUTO) 0.1 /CMM (0.0-0.7); EOSINOPHILS % (AUTO) 0.7 % (0.0-6.0); HEMATOCRIT 30 % (39-51); HEMOGLOBIN 9.9 g/dL (13.5-17.5); LYMPHOCYTES # (AUTO) 0.9 /CMM (0.8-4.8); LYMPHOCYTES % (AUTO) 8.7 % (20.0-44.0); MEAN CORPUSCULAR HEMOGLOBIN 28 PG (26.0-33.0); MEAN CORPUSCULAR HGB CONC 33 g/dl (31.0-36.0); MEAN CORPUSCULAR VOLUME 84 fL (80-96); MONOCYTES # (AUTO) 0.6 /CMM (0.1-1.30); MONOCYTES % (AUTO) 6.2 % (2.0-12.0); NEUTROPHILS # (AUTO) 8.4 /CMM (1.8-8.9); NEUTROPHILS % (AUTO) 84.1 % (43.0-81.0); PLATELET COUNT (AUTO) 172 /CMM (150-450); RDW COEFFICIENT OF VARIATION 16.5 (11.5-15.0); RED BLOOD CELL COUNT(AUTO) 3.55 MIL/uL (4.5-6.0)
[2016-10-03 05:05] LABS: CALCIUM, SERUM 8.9 mg/dL (8.5-10.1); CARBON DIOXIDE 24 mmol/L (21-32); CHLORIDE 113 mmol/L (98-107); CREATININE 1.2 mg/dL (0.6-1.3); GLUCOSE 92 mg/dL (74-106); MAGNESIUM 1.7 mg/dL (1.8-2.4); PHOSPHORUS 2.9 mg/dL (2.5-4.9); POTASSIUM 3.8 mmol/L (3.5-5.1); SODIUM SERUM 146 mmol/L (136-145); UREA NITROGEN, BLOOD 31 mg/dL (7-18)
--- NOTE | 2016-10-03 07:45 | NUR ---
ICU/RN - Notes Pt received in bed awake, alert and oriented x1-2. No acute distress. Respirations are even and unlabored. Denies pain or discomfort. SR 70 with PVC's on tele monitor. Cunningham catheter intact draining urine to gravity. IV patent and intact, with IVF infusing well. Heparin gtt @ 950 units/hr infusing. Safety and comfort measures in place. Will continue to monitor pt closely.
[2016-10-03] MEDS: ASPIRIN 325 MG TABLET PO SCH (08:37)
[2016-10-03] MEDS: CARBIDOPA/LEVODOPA 25/100 MG 1 UDTAB PO SCH ×4 (08:37→17:52)
[2016-10-03] MEDS: DIVALPROEX SODIUM 125 MG CAP.SPRINK PO SCH ×4 (08:37→18:42)
[2016-10-03] MEDS: FAMOTIDINE (20 MG) 20 MG TABLET PO SCH (08:37)
[2016-10-03] MEDS: MEMANTINE HCL 5 MG TABLET PO SCH ×3 (08:37→17:52)
[2016-10-03] MEDS: DOCUSATE SODIUM 100 MG CAPSULE PO SCH (08:37)
[2016-10-03] MEDS: GABAPENTIN 300 MG CAPSULE PO SCH ×3 (08:37→17:52)
[2016-10-03] MEDS: FOLIC ACID 1 MG TABLET PO SCH (08:37)
--- NOTE | 2016-10-03 09:00 | NUR ---
ICU/RN - Notes Pt refused to take some of PO medications. Educated pt the importance of medications, but pt still strongly refuses stating "No! I don't want to take them!"
[2016-10-03] MEDS: Magnesium 1GM/D5W 100ML PREMIX 100 ML IV SCH ×2 (10:15→11:02)
--- NOTE | 2016-10-03 14:15 | NUR ---
ICU/RN - Notes Pt refused to take some of PO medications. Educated pt the importance of medications, but pt still strongly refuses stating "No! I don't want to take them!" , Elana, at bedside trying to aid with pt taking medication, but pt still refuses to take some medication.
--- NOTE | 2016-10-03 14:35 | NUR ---
ICU/RN - Notes Dr Carmen at bedside, made aware of pt's Troponin value trending down.
[2016-10-03] MEDS: QUETIAPINE FUMARATE 25 MG TABLET PO SCH (18:42)
--- NOTE | 2016-10-03 19:42 | NUR ---
EQUINE DENTIST RECEIVED REPORT. PATIENT IS AWAKE AND ORIENTED X2., VERBAL, ON ROOM AIR WITH O2 SAT AT 98%, DENIES PAIN, CALM, ON HEPARIN DRIP AT 960 UNITS/HR, WITH TRIPP DRAINING CLEAR YELLOW URINE, IV NS AT 75 CC/HR, WILL CONTINUE TO MONITOR
--- NOTE | 2016-10-03 19:54 | NUR ---
NCQA SPECIALIST TEMP 97.5, BP 139/72, RR 18, O2 SAT 98% ON ROOM AIR
[2016-10-03] MEDS: ATORVASTATIN 40 MG TABLET PO SCH (21:38)
[2016-10-03] MEDS: HEPARIN INFUSION/D5W 500 ML IV PRN (23:40)
[2016-10-04] VITALS (40 sets, daily range): BP systolic 103–170; BP diastolic 46–134
[2016-10-04] MEDS: IV NS 0.9% 1,000 ML IV PRN ×2 (03:19→17:14)
--- NOTE | 2016-10-04 04:29 | NUR ---
TAPE TRANSFERRER AGITATED, ANXIOUS, SBP'S IN 160'S, TREMORS NOTED IN HANDS AND LEGS, ALERT AND ORIENTED X2, PRN ATIVAN 0.25 MG PO GIVEN ORDERED. Addendum: 10/04/16 at 0531 by PATRICIA CARRANZA RN TAPE TRANSFERRER CALMED DOWN, BP 132/55
[2016-10-04 04:33] LABS: BASOPHILS % (AUTO) 0.3 % (0.0-2.0); EOSINOPHILS # (AUTO) 0.1 /CMM (0.0-0.7); EOSINOPHILS % (AUTO) 1.1 % (0.0-6.0); HEMATOCRIT 32 % (39-51); HEMOGLOBIN 10.6 g/dL (13.5-17.5); LYMPHOCYTES # (AUTO) 0.9 /CMM (0.8-4.8); LYMPHOCYTES % (AUTO) 11.5 % (20.0-44.0); MEAN CORPUSCULAR HEMOGLOBIN 28 PG (26.0-33.0); MEAN CORPUSCULAR HGB CONC 33 g/dl (31.0-36.0); MEAN CORPUSCULAR VOLUME 83 fL (80-96); MONOCYTES # (AUTO) 0.4 /CMM (0.1-1.30); MONOCYTES % (AUTO) 5.9 % (2.0-12.0); NEUTROPHILS # (AUTO) 6.1 /CMM (1.8-8.9); NEUTROPHILS % (AUTO) 81.2 % (43.0-81.0); PLATELET COUNT (AUTO) 195 /CMM (150-450); RDW COEFFICIENT OF VARIATION 15.9 (11.5-15.0); RED BLOOD CELL COUNT(AUTO) 3.86 MIL/uL (4.5-6.0); WHITE BLOOD COUNT (AUTO) 7.5 K/uL (4.3-11.0)
[2016-10-04 04:48] LABS: CARBON DIOXIDE 23 mmol/L (21-32); CHLORIDE 111 mmol/L (98-107); GLUCOSE 102 mg/dL (74-106); MAGNESIUM 1.9 mg/dL (1.8-2.4); PHOSPHORUS 2.9 mg/dL (2.5-4.9); POTASSIUM 3.9 mmol/L (3.5-5.1); SODIUM SERUM 144 mmol/L (136-145); UREA NITROGEN, BLOOD 22 mg/dL (7-18)
--- NOTE | 2016-10-04 06:05 | NUR ---
GEOPHYSICAL PROSPECTOR APTT 47, NO CHANGE IN HEPARIN DRIP HAD LARGE BM OF STICKY BROWN SOFT STOOL, NO BLOOD
[2016-10-04] MEDS: FAMOTIDINE (20 MG) 20 MG TABLET PO SCH (07:30)
[2016-10-04] MEDS: MEMANTINE HCL 5 MG TABLET PO SCH ×2 (08:03→17:00)
[2016-10-04] MEDS: CARBIDOPA/LEVODOPA 25/100 MG 1 UDTAB PO SCH ×3 (08:03→17:00)
[2016-10-04] MEDS: FOLIC ACID 1 MG TABLET PO SCH (08:03)
[2016-10-04] MEDS: GABAPENTIN 300 MG CAPSULE PO SCH ×3 (08:03→17:00)
[2016-10-04] MEDS: ASPIRIN 325 MG TABLET PO SCH (08:03)
[2016-10-04] MEDS: DOCUSATE SODIUM 100 MG CAPSULE PO SCH (08:04)
[2016-10-04] MEDS: DIVALPROEX SODIUM 125 MG CAP.SPRINK PO SCH ×3 (08:04→18:43)
--- NOTE | 2016-10-04 12:00 | NUR ---
ICU/RN - Notes Attempted to feed pt lunch, pt took a few spoon fulls, but refused to eat further more. Stating "Stop it! No more!" Encouraged pt to eat, but strongly refuses cursing at nurse.
--- NOTE | 2016-10-04 14:00 | NUR ---
ICU/RN - Notes Pt refused to take medications. Educated pt the importance of medications, but pt still strongly refuses stating "No! I don't need to take them!"
[2016-10-04] MEDS: QUETIAPINE FUMARATE 25 MG TABLET PO SCH (18:43)
--- NOTE | 2016-10-04 18:48 | NUR ---
ICU/RN - Notes Pt still strongly refusing to take medications, stating aggressively "No! I don't want them!" Educated the risks/benefits of taking medications but pt still strongly refuses.
--- NOTE | 2016-10-04 19:45 | NUR ---
ICU/KARATE TEACHER RECEIVED REPORT FROM DAY NURSE. PT IS ALERT TO SELF X2 . PT IS ON ROOM AIR CURRENTLY SATURATION IS 96-100%. PT IS SR TO SB WHEN SLEEPING. TRIPP CATH IN PLACE DRAINING YELLOW URINE. THIS.PT IS CURRENTLY ON HEPARINE DRIP, FOR THURSDAY DIRECTOR INTELLIGENCE ANALYSIS PROGRAMS AT [facility]. THERE ARE A FEW SKIN ISSUES THAT ARE DISCUSSED ON THE FLOW SHEET. PT TURNED Q 2 HRS AND OFF LOAD PROBLEM AREAS. PT TURNED AND REPOSITIONED FOR COMFORT AND CARE. NO ACUTE DISTRESS SEEN AT THIS TIMES, PT APPEARS COMFORTABLE WITH CALL LIGHT WITHIN REACH.
[2016-10-04] MEDS: ATORVASTATIN 40 MG TABLET PO SCH (22:00)
--- NOTE | 2016-10-04 22:10 | NUR ---
ICU/INSTRUMENT SPECIALIST PT REFUSED MEDICATION. SAID HE " i ALREADY HAD TAKEN THIS EARLIER TODAY." TRIED TO EXPLAIN THAT PT RECEIVED MANY MEDICATION WHILE IN THE HOSPITAL. HOWEVER PT STILL REFUSED.
--- NOTE | 2016-10-04 23:59 | NUR ---
ICU/MATERNAL CHILD NURSE PT REQUESTED SOMETHING FOR SLEEP, TRAZODONE 12.5 MG WAS GIVEN FOR SLEEP, AFTER HE WAS CLEANED UP FROM A LARGE, SOFT BM. PT WAS TURNED AND REPOSITIONED FOR COMFORT AND CARE. CALL LIGHT WITHIN REACH. NO ACUTE DISTRESS SEEN AT THIS TIME.
[2016-10-05] VITALS (25 sets, daily range): BP systolic 90–164; BP diastolic 50–88
[2016-10-05] MEDS: HEPARIN INFUSION/D5W 500 ML IV PRN (01:17)
--- NOTE | 2016-10-05 03:40 | NUR ---
ICU/AIRPLANE TESTER PT COMPLAIN OF LEG PAIN, PT WAS REPOSITIONED FOR COMFORT AND CARE. THEN GIVEN 1 TAB NORCO FOR PAIN 7/10 TO LEG. CALL LIGHT WITHIN REACH, NO ACUTE DISTRESS SEEN. WILL CONTINUE TO MONITOR THIS PT.
[2016-10-05 04:43] LABS: BASOPHILS % (AUTO) 0.3 % (0.0-2.0); EOSINOPHILS # (AUTO) 0.1 /CMM (0.0-0.7); EOSINOPHILS % (AUTO) 1.5 % (0.0-6.0); HEMATOCRIT 31 % (39-51); HEMOGLOBIN 10.2 g/dL (13.5-17.5); LYMPHOCYTES % (AUTO) 13.6 % (20.0-44.0); MEAN CORPUSCULAR HEMOGLOBIN 28 PG (26.0-33.0); MEAN CORPUSCULAR HGB CONC 33 g/dl (31.0-36.0); MEAN CORPUSCULAR VOLUME 84 fL (80-96); MONOCYTES # (AUTO) 0.5 /CMM (0.1-1.30); NEUTROPHILS % (AUTO) 78.6 % (43.0-81.0); PLATELET COUNT (AUTO) 208 /CMM (150-450); RDW COEFFICIENT OF VARIATION 15.9 (11.5-15.0); WHITE BLOOD COUNT (AUTO) 7.7 K/uL (4.3-11.0)
[2016-10-05 04:55] LABS: CALCIUM, SERUM 8.6 mg/dL (8.5-10.1); CARBON DIOXIDE 24 mmol/L (21-32); CHLORIDE 113 mmol/L (98-107); GLUCOSE 99 mg/dL (74-106); MAGNESIUM 1.7 mg/dL (1.8-2.4); PHOSPHORUS 3.3 mg/dL (2.5-4.9); POTASSIUM 3.7 mmol/L (3.5-5.1); SODIUM SERUM 146 mmol/L (136-145); UREA NITROGEN, BLOOD 17 mg/dL (7-18)
[2016-10-05 05:04] LABS: TROPONIN I 7.772 ng/mL (0.00-0.056)
--- NOTE | 2016-10-05 05:32 | NUR ---
ICU/TREASURY ANALYST PT'S TROPONIN IS ELEVATED AT 7.772 , HOWEVER THIS IS LOWER THAN YESTERDAYS AT 11.381. CHARGE NURSE AWARE OF THIS.
[2016-10-05] MEDS: IV NS 0.9% 1,000 ML IV PRN ×2 (06:07→21:23)
[2016-10-05] MEDS: FAMOTIDINE (20 MG) 20 MG TABLET PO SCH (07:30)
[2016-10-05] MEDS: DIVALPROEX SODIUM 125 MG CAP.SPRINK PO SCH ×4 (08:57→18:05)
[2016-10-05] MEDS: DOCUSATE SODIUM 100 MG CAPSULE PO SCH (08:57)
[2016-10-05] MEDS: ASPIRIN 325 MG TABLET PO SCH ×2 (08:57→09:41)
[2016-10-05] MEDS: CARBIDOPA/LEVODOPA 25/100 MG 1 UDTAB PO SCH ×4 (08:58→18:06)
[2016-10-05] MEDS: FOLIC ACID 1 MG TABLET PO SCH (08:58)
[2016-10-05] MEDS: GABAPENTIN 300 MG CAPSULE PO SCH ×4 (08:58→18:06)
[2016-10-05] MEDS: MEMANTINE HCL 5 MG TABLET PO SCH ×3 (08:58→18:05)
--- NOTE | 2016-10-05 09:00 | NUR ---
ICU/RN - Notes Pt selective with medications to take. Provided education regarding medications, but pt still strongly refuses to take some medications. Assisted pt to eat breakfast, and encouraged pt to eat, however pt has minimal appetite.
[2016-10-05] MEDS: Magnesium 1GM/D5W 100ML PREMIX 100 ML IV SCH ×2 (10:40→11:45)
--- NOTE | 2016-10-05 15:00 | NUR ---
ICU/RN - Notes Pt's Elana at bedside. Updated on plan of care, aware of pt's procedure tomorrow AM at [facility].
[2016-10-05] MEDS: QUETIAPINE FUMARATE 25 MG TABLET PO SCH (18:05)
--- NOTE | 2016-10-05 18:54 | NUR ---
ICU/RN - Notes Patient resting in bed with eyes closed in no acute distress.
--- NOTE | 2016-10-05 19:54 | NUR ---
horticulturalist. initial assessment. received the pt rest on the bed. awake, alert, follow commands. cafeteria monitor showing s catarina. on room air. sat 97%. no acute distress noted. no c/o chest pain. iv rt and lt hand, 20g. ivf ns 75ml/h, heparin drip 950u/h. hob elevated. fc patent. afebrile. turn and reposition q2h. will continue to monitor vitals.
[2016-10-05] MEDS: ATORVASTATIN 40 MG TABLET PO SCH (21:23)
--- NOTE | 2016-10-05 22:54 | NUR ---
BEAD FORMING MACHINE SET UP OPERATOR. PT GETTING HEPARIN DRIP. TOMORROW GOING TO CARDIAC CATH, CALLED DR KENNEDY FOR CLARIFY HEPARIN DRIP. DR VAZQUEZ TOMORROW MORNING 0600 STOP HEPARIN DRIP.
[2016-10-06] VITALS (7 sets, daily range): BP systolic 119–159; BP diastolic 51–75
[2016-10-06] MEDS: HEPARIN INFUSION/D5W 500 ML IV PRN (02:30)
--- NOTE | 2016-10-06 03:38 | NUR ---
EPIC [facility] SPECIALISTS. PT NPO FROM 0000.
--- NOTE | 2016-10-06 03:39 | NUR ---
WET MIXER. AM CARE, ORAL CARE, BED BATH GIVEN. LINEN CHANGED. REMAINING SAME ROOM AIR. SAT 98%. NO ACUTE DISTRESS NOTED. SOUND CONTROLLER SHOWING S MELBA, IV LT HAND. HEPARIN 950 U/H. NS 75 ML/H. NPO FROM 0000, THIS MORNING PT GOING TO [facility] FOR CARDIAC CATH HOB ELEVATED, FC PATENT. URINE DRAINING. AFEBRILE. WILL CONTINUE TO MONITOR VITALS.
[2016-10-06 05:14] LABS: BASOPHILS % (AUTO) 0.4 % (0.0-2.0); EOSINOPHILS # (AUTO) 0.2 /CMM (0.0-0.7); EOSINOPHILS % (AUTO) 2.8 % (0.0-6.0); HEMATOCRIT 33 % (39-51); HEMOGLOBIN 10.8 g/dL (13.5-17.5); LYMPHOCYTES # (AUTO) 1.3 /CMM (0.8-4.8); LYMPHOCYTES % (AUTO) 17.2 % (20.0-44.0); MEAN CORPUSCULAR HEMOGLOBIN 28 PG (26.0-33.0); MEAN CORPUSCULAR HGB CONC 33 g/dl (31.0-36.0); MEAN CORPUSCULAR VOLUME 84 fL (80-96); MONOCYTES # (AUTO) 0.5 /CMM (0.1-1.30); MONOCYTES % (AUTO) 6.5 % (2.0-12.0); NEUTROPHILS # (AUTO) 5.4 /CMM (1.8-8.9); NEUTROPHILS % (AUTO) 73.1 % (43.0-81.0); PLATELET COUNT (AUTO) 197 /CMM (150-450); RDW COEFFICIENT OF VARIATION 16.3 (11.5-15.0); WHITE BLOOD COUNT (AUTO) 7.4 K/uL (4.3-11.0)
[2016-10-06 05:22] LABS: CALCIUM, SERUM 8.9 mg/dL (8.5-10.1); CARBON DIOXIDE 25 mmol/L (21-32); CHLORIDE 114 mmol/L (98-107); GLUCOSE 100 mg/dL (74-106); MAGNESIUM 2.1 mg/dL (1.8-2.4); PHOSPHORUS 3.3 mg/dL (2.5-4.9); POTASSIUM 4.1 mmol/L (3.5-5.1); SODIUM SERUM 147 mmol/L (136-145); UREA NITROGEN, BLOOD 15 mg/dL (7-18)
--- NOTE | 2016-10-06 07:30 | NUR ---
WEEDER THINNER. PT GOING TO [facility] ROOM 103, REPORT GIVEN TO WEEDER THINNER GRACIELA. PT IS NPO. PROCEDURE AT 1000. VITALS STABLE. TRANSPORTATION AT BED SIDE REPORT GIVEN TO DEB.
== END 2016-10-06 07:35 | disposition short-term general hospital (02) | DRG 280 ==
LOC: ER 17:50 → TELE 20:03 → ICU 10-01 01:31
PROVIDERS: ADMIT Internal Medicine; ATTEND Internal Medicine
DX: I21.3 ST elevation (STEMI) myocardial infarction of unspecified site (principal); G93.41 Metabolic encephalopathy; N17.0 Acute kidney failure with tubular necrosis; E44.0 Moderate protein-calorie malnutrition; I12.9 Hypertensive chronic kidney disease with stage 1 through stage 4 chronic kidney disease, or unspecified chronic kidney disease; D72.829 Elevated white blood cell count, unspecified; E78.5 Hyperlipidemia, unspecified; F03.90 Unspecified dementia, unspecified severity, without behavioral disturbance, psychotic disturbance, mood disturbance, and anxiety; G20 Parkinson's disease; K21.9 Gastro-esophageal reflux disease without esophagitis; Z79.899 Other long term (current) drug therapy; N18.2 Chronic kidney disease, stage 2 (mild); Z68.21 Body mass index [BMI] 21.0-21.9, adult; F31.9 Bipolar disorder, unspecified; E86.9 Volume depletion, unspecified; L89.620 Pressure ulcer of left heel, unstageable; L89.610 Pressure ulcer of right heel, unstageable; L89.621 Pressure ulcer of left heel, stage 1; L98.8 Other specified disorders of the skin and subcutaneous tissue; M24.574 Contracture, right foot; M24.575 Contracture, left foot; R90.89 Other abnormal findings on diagnostic imaging of central nervous system
CPT/HCPCS: 36415; 70450-TC; 71010-TC; 80048-TC; 80061-TC; 80076-TC; 80164-TC; 81000-TC; 82746; 83540-TC; 83605-TC; 83735-TC; 84100-TC; 84443-TC; 84484-TC; 85025-TC; 85610-TC; 85652-TC; 85730-TC; 87040-TC; 87081-TC; 92526; 92611-TC; 93307-TC; 93308-TC; A4606; J1644; J1650; J3475; J7030; Z7610